=== PATIENT | male | born 1970 | race Caucasian/White ===

== ENCOUNTER 2023-12-26 07:39 | Day surgery (SDC) | payer BC ==
[2023-12-26] MEDS: Lactated Ringers 1,000 ML IV SCH (07:57)
[2023-12-26] MEDS ORDERED: Propofol 200 MG/20 ML SDV ONE (08:19)
[2023-12-26] MEDS ORDERED: fentaNYL 100 MCG/2 ML SDV ONE (08:20)
== END 2023-12-26 11:16 | disposition home or self-care (01) ==
LOC: VM.SDS 07:39
PROVIDERS: ATTEND Family Medicine
DX: Z12.11 Encounter for screening for malignant neoplasm of colon (principal); D12.6 Benign neoplasm of colon, unspecified; K57.30 Diverticulosis of large intestine without perforation or abscess without bleeding; E78.00 Pure hypercholesterolemia, unspecified; Z87.891 Personal history of nicotine dependence
CPT/HCPCS: 00811; 45380; 45385; J2704; J3010; J7120